=== PATIENT | female | born 1940 | race African-American/Black ===

== ENCOUNTER 2021-08-12 01:27 | Inpatient (IN) | payer OTHER ==
[2021-08-12] MEDS ORDERED: NA CHLORIDE 0.9% 1,000 ML ONE (01:58)
[2021-08-12] MEDS ORDERED: CEFTRIAXONE 1000 MG/VIAL ONE (01:58)
[2021-08-12] MEDS ORDERED: ACETAMINOPHEN 500 MG TAB ONE (01:58)
[2021-08-12 02:25] LABS: Urine Blood 2+ (Negative); Urine Glucose Negative (Negative); Urine Protein 2+ (Negative); Urine Specific Gravity 1.025 (1.005-1.030)
[2021-08-12 02:57] LABS: Absolute Lymphocytes (CBC) 0.6 K/uL (0.7-4.9); Lymphocytes % 5.9 % (15.3-44.8); MCV 75.1 fL (80-100); MPV 8.7 fL (7.6-11.3); RBC Red Blood Cell Count 4.12 M/uL (3.86-4.86)
[2021-08-12] MEDS ORDERED: ACETAMINOPHEN 650MG/RECT SUPP PR ONE (02:59)
[2021-08-12 03:01] LABS: Protime INR 1.28
[2021-08-12 03:13] LABS: Albumin 3.9 g/dL (3.4-5.0); Bilirubin Direct 0.6 mg/dL (0-0.2); Bilirubin Total 1.2 mg/dL (0.2-1.0); Magnesium 1.9 mg/dL (1.8-2.4); Potassium 4.1 mmol/L (3.5-5.1)
[2021-08-12 03:17] LABS: Troponin High Sensitivity 16.1 pg/mL (<58.9)
--- NOTE | 2021-08-12 03:40 | EDPHYS ---
Physician Documentation [facility] Name: Mary Jo Lemus Age: 80 yrs Sex: Female : 1940 Arrival Date: 08/12/2021 Time: 01:42 Bed 5 Private MD: ED Physician Tone Hernandez HPI: 08/12 02:32 This 80 yrs old Black Female presents to ER via EMS with complaints of Altered Mental qamar Status. 02:32 The patient presents with confusion, decreased mental status. Onset: The qamar symptoms/episode began/occurred today. Possible causes: sepsis. Associated signs and symptoms: The patient has no apparent associated signs or symptoms, Pertinent positives: confusion, dizziness, headache, lightheadedness. Current symptoms: In the emergency department the patient's symptoms are unchanged from the initial presentation. Patient's baseline: Neuro: alert and fully oriented. The patient has experienced similar episodes in the past, a few times. Historical: - Allergies: 01:44 No Known Allergies; lp1 - Home Meds: 01:44 enalapril maleate 20 mg Oral tab 1 tab 2 times per day [Active]; glipizide 5 mg Oral lp1 tab 1 tab once daily [Active]; pantoprazole 40 mg oral TbEC 1 tab 2 times per day [Active]; leflunomide 20 mg oral tab 1 tab once daily [Active]; metoprolol tartrate 25 mg Oral tab 1 tab once daily [Active]; - PMHx: 01:44 Hypertensive disorder; Diabetes mellitus; lp1 - PSHx: 01:44 hysterectomy; Cholecystectomy; knee surgery; lp1 - Immunization history:: Adult Immunizations up to date, Client reports receiving the 2nd dose of the Covid vaccine. - Social history:: Smoking status: Patient denies any tobacco usage or history of. ROS: 02:33 Eyes: Negative for injury, pain, redness, and discharge, ENT: Negative for injury, qamar pain, and discharge, Neck: Negative for injury, pain, and swelling, Cardiovascular: Negative for chest pain, palpitations, and edema, Respiratory: Negative for shortness of breath, cough, wheezing, and pleuritic chest pain, Back: Negative for injury and pain, MS/Extremity: Negative for injury and deformity, Skin: Negative for injury, rash, and discoloration, Psych: Negative for depression, anxiety, suicide ideation, homicidal ideation, and hallucinations, Allergy/Immunology: Negative for hives, rash, and allergies, Endocrine: Negative for neck swelling, polydipsia, polyuria, polyphagia, and marked weight changes. 02:33 Constitutional: Positive for fever. 02:33 Respiratory: Positive for cough. 02:33 : Positive for difficulty urinating. 02:33 Neuro: Positive for altered mental status, weakness. Exam: 02:33 Head/Face: Normocephalic, atraumatic. Eyes: Pupils equal round and reactive to light, qamar extra-ocular motions intact. Lids and lashes normal. Conjunctiva and sclera are non-icteric and not injected. Cornea within normal limits. Periorbital areas with no swelling, redness, or edema. ENT: Nares patent. No nasal discharge, no septal abnormalities noted. Tympanic membranes are normal and external auditory canals are clear. Oropharynx with no redness, swelling, or masses, exudates, or evidence of obstruction, uvula midline. Mucous membranes moist. Neck: Trachea midline, no thyromegaly or masses palpated, and no cervical lymphadenopathy. Supple, full range of motion without nuchal rigidity, or vertebral point tenderness. No Meningismus. Chest/axilla: Normal chest wall appearance and motion. Nontender with no deformity. No lesions are appreciated. Cardiovascular: Regular rate and rhythm with a normal S1 and S2. No gallops, murmurs, or rubs. Normal PMI, no JVD. No pulse deficits. Respiratory: Lungs have equal breath sounds bilaterally, clear to auscultation and percussion. No rales, rhonchi or wheezes noted. No increased work of breathing, no retractions or nasal flaring. Abdomen/GI: Soft, non-tender, with normal bowel sounds. No distension or tympany. No guarding or rebound. No evidence of tenderness throughout. Back: No spinal tenderness. No costovertebral tenderness. Full range of motion. Skin: Warm, dry with normal turgor. Normal color with no rashes, no lesions, and no evidence of cellulitis. MS/ Extremity: Pulses equal, no cyanosis. Neurovascular intact. Full, normal range of motion. Psych: Awake, alert, with orientation to person, place and time. Behavior, mood, and affect are within normal limits. 02:33 Constitutional: The patient appears febrile. 02:33 Cardiovascular: Rate: tachycardic, actual rate is 100 bpm, Rhythm: regular, Pulses: no pulse deficits are appreciated, Heart sounds: normal, normal S1and S2, no S3 or S4, no murmur, no rub, no gallop, murmur, not appreciated, rub, not appreciated, Edema: is not appreciated, JVD: is not appreciated. Vital Signs: 01:42 BP 166 / 84; Pulse 100; Resp 19; Temp 101.9(O); Pulse Ox 100% on R/A; Weight 54.43 kg lp1 (R); Height 5 ft. 4 in. (162.56 cm); Pain 0/10; 05:23 Temp 99.1(O); lg3 01:42 Body Mass Index 20.60 (54.43 kg, 162.56 cm) lp1 MDM: 01:45 Patient medically screened. qamar 02:36 Differential diagnosis: viral Infection, bacterial infection, URI, bronchitis, qamar pneumonia UTI, gastroenteritis. Differential Diagnosis altered mental status, sepsis. Differential Diagnosis: alcohol intoxication, hypoglycemia, TIA, UTI, volume depletion. Data reviewed: vital signs, nurses notes, lab test result(s), EKG, radiologic studies, plain films. Data interpreted: personnel monitor: rate is 100 beats/min, rhythm is regular, Pulse oximetry: on room air is 100 %. Test interpretation: by ED physician or midlevel provider: ECG, plain radiologic studies. Counseling: I had a detailed discussion with the patient and/or guardian regarding: the historical points, exam findings, and any diagnostic results supporting the discharge/admit diagnosis, lab results, radiology results, the need for further work-up and treatment in the hospital. 08/12 01:46 Order name: Basic Metabolic Panel; Complete Time: 03:20 qamar 08/12 01:46 Order name: CBC with Diff; Complete Time: 03:20 qamar 08/12 01:46 Order name: LFT's; Complete Time: 03:20 qamar 08/12 01:46 Order name: Magnesium; Complete Time: 03:20 qamar 08/12 01:46 Order name: NT PRO-BNP; Complete Time: 03:20 qamar 08/12 01:46 Order name: PT-INR; Complete Time: 03:20 qamar 08/12 01:46 Order name: Troponin HS; Complete Time: 03:20 qamar 08/12 01:46 Order name: XRAY Chest (1 view) [facility] 08/12 01:46 Order name: Lipase; Complete Time: 03:20 qamar 08/12 01:46 Order name: Urine Culture [facility] 08/12 01:46 Order name: Lactate; Complete Time: 03:20 qamar 08/12 01:47 Order name: SARS-COV-2 RT PCR (Document "Date of Onset" if Symptomatic); Complete Time: qamar 04:12 08/12 02:26 Order name: Urine Dipstick-Ancillary; Complete Time: 02:31 EDMS 08/12 02:30 Order name: CT Stone Protocol [facility] 08/12 01:46 Order name: EKG; Complete Time: 01:47 qamar 08/12 01:46 Order name: Cardiac monitoring; Complete Time: 01:49 qmaar 08/12 01:46 Order name: EKG - Nurse/Tech; Complete Time: 02:25 qamar 08/12 01:46 Order name: IV Saline Lock; Complete Time: 02:25 [facility] 08/12 01:46 Order name: Labs collected and sent; Complete Time: 02:25 [facility] 08/12 01:46 Order name: O2 Per Protocol; Complete Time: 01:49 [facility] 08/12 01:46 Order name: O2 Sat Monitoring; Complete Time: 01:49 qamar 08/12 01:46 Order name: Urine Dipstick-Ancillary (obtain specimen); Complete Time: 02:25 [facility] 08/12 02:22 Order name: Sheriff; Complete Time: 02:22 lg3 02 02:33 Order name: CT Head Brain wo Cont [facility] 08/12 02:37 Order name: Head Brain Wo Cont EDMS Administered Medications: 02:32 CANCELLED (Duplicate Order): Tylenol 1000 mg PO once qamar 02:45 Drug: NS 0.9% 1000 ml Route: IV; Rate: 1 bolus; Site: right antecubital; lg3 05:24 Follow up: IV Status: Infusion continued upon admission lg3 02:45 Drug: Rocephin (cefTRIAXone) 1 grams Route: IV; Rate: per protocol; Site: right lg3 antecubital; 02:45 Follow up: Response: No adverse reaction lg3 02:45 Follow up: Response: No adverse reaction lg3 05:23 Follow up: Response: No adverse reaction; IV Status: Completed infusion; IV Intake: [id number] 03:10 Drug: Tylenol Suppository 650 mg Route: ND; lg3 05:23 Follow up: Response: No adverse reaction lg3 Disposition Summary: 08/12/21 03:39 Hospitalization Ordered Hospitalization Status: Inpatient Admission [facility] Provider: Rikki Carreon cha Location: Telemetry/MedSur (Inpatient) qamar Condition: Fair qamar Problem: new qamar Symptoms: have improved qamar Bed/Room Type: Standard [facility] Room Assignment: 425(08/12/21 04:34) mw Diagnosis - Fever, unspecified qamar - Abdominal tenderness qamar - Altered mental status, unspecified qamar - Coronavirus infection, unspecified [facility] - SARS-associated coronavirus as the cause of diseases classified elsewhere qamar Forms: - Medication Reconciliation Form qamar - SBAR form [facility] Signatures: Dispatcher [employer] EDMey Maxwell RN RN Tone Max MD MD cha Pena, Laura, RN RN lp1 Trisha Ledesma RN RN lg3 Sadia You PA PA sb3 Corrections: (The following items were deleted from the chart) 02:32 01:46 Tylenol 1000 mg PO once ordered. [facility] 04:34 03:39 [facility]
--- NOTE | 2021-08-12 03:40 | ER ---
Nurse's Notes [facility] Name: Mary Jo Lemus Age: 80 yrs Sex: Female : 1940 Arrival Date: 08/12/2021 Time: 01:42 Bed 5 Private MD: Diagnosis: Fever, unspecified;Abdominal tenderness;Altered mental status, unspecified;Coronavirus infection, unspecified;SARS-associated coronavirus as the cause of diseases classified elsewhere Presentation: 08/12 01:42 Chief complaint: EMS states: Called by patient's daughter for complaint of altered lp1 mental status, reports patient did not seem like herself. Coronavirus screen: fever. Ebola Screen: No symptoms or risks identified at this time. Initial Sepsis Screen: Does the patient meet any 2 criteria? Temp <36.0*C (96.8*F)) or > 38.3*C (100.9*F). Does the patient have a suspected source of infection? No. Patient's initial sepsis screen is negative. Risk Assessment: Do you want to hurt yourself or someone else? Patient reports no desire to harm self or others. Onset of symptoms was August 12, 2021. 01:42 Method Of Arrival: EMS: [facility] lp1 01:42 Acuity: EZIO 3 lp1 01:47 Care prior to arrival: IV initiated. 20 GA, in the left antecubital area, Glucose lp1 check: 96. Historical: - Allergies: 01:44 No Known Allergies; lp1 - Home Meds: 01:44 enalapril maleate 20 mg Oral tab 1 tab 2 times per day [Active]; glipizide 5 mg Oral lp1 tab 1 tab once daily [Active]; pantoprazole 40 mg oral TbEC 1 tab 2 times per day [Active]; leflunomide 20 mg oral tab 1 tab once daily [Active]; metoprolol tartrate 25 mg Oral tab 1 tab once daily [Active]; - PMHx: 01:44 Hypertensive disorder; Diabetes mellitus; lp1 - PSHx: 01:44 hysterectomy; Cholecystectomy; knee surgery; lp1 - Immunization history:: Adult Immunizations up to date, Client reports receiving the 2nd dose of the Covid vaccine. - Social history:: Smoking status: Patient denies any tobacco usage or history of. Screenin:46 Abuse screen: Denies threats or abuse. Denies injuries from another. Nutritional lg3 screening: No deficits noted. Tuberculosis screening: No symptoms or risk factors identified. Fall Risk No fall in past 12 months (0 pts). IV access (20 points). Ambulatory Aid- None/Bed Rest/Nurse Assist (0 pts). Gait- Weak (10 pts.). Mental Status- Overestimates/Forgets Limitations (15 pts.). Total Hurtado Fall Scale indicates High Risk Score (45 or more points). Fall prevention measures have been instituted. Side Rails Up X 2 Frequent Obs/Assessments Occuring Family Present and informed to notify staff if the need to leave the bedside As available patient and family educated on Fall Prevention Program and Strategies. Assessment: 02:46 General: Appears in no apparent distress. comfortable, Behavior is calm, cooperative, lg3 flat, quiet. Pain: Denies pain. Neuro: Level of Consciousness is awake, alert, confused, Oriented to person, place. Cardiovascular: No deficits noted. Capillary refill < 3 seconds Clubbing of nail beds is absent JVD is absent Patient's skin is warm and dry. Respiratory: No deficits noted. Airway is patent Trachea midline Respiratory effort is even, unlabored, Respiratory pattern is regular, symmetrical, Breath sounds are clear bilaterally. GI: No deficits noted. Abdomen is flat, distended, Bowel sounds present X 4 quads. Abd is soft and non tender X 4 quads. : No deficits noted. No signs and/or symptoms were reported regarding the genitourinary system. EENT: No deficits noted. No signs and/or symptoms were reported regarding the EENT system. Derm: Skin is intact, is thin, Skin is dry, Skin temperature is warm. Musculoskeletal: Circulation, motion, and sensation intact. Range of motion: intact in all extremities, Parent/caregiver report the patient having generalized weakness. 04:40 Reassessment: Patient appears in no apparent distress at this time. No changes from lg3 previously documented assessment. Patient and/or family updated on plan of care and expected duration. Pain level reassessed. pt quietly resting with family at bedside. Vital Signs: 01:42 BP 166 / 84; Pulse 100; Resp 19; Temp 101.9(O); Pulse Ox 100% on R/A; Weight 54.43 kg lp1 (R); Height 5 ft. 4 in. (162.56 cm); Pain 0/10; 05:23 Temp 99.1(O); lg3 01:42 Body Mass Index 20.60 (54.43 kg, 162.56 cm) lp1 ED Course: 01:42 Patient arrived in ED. lp1 01:43 Trisha Ledesma, RN is Primary Nurse. lg3 01:44 Triage completed. lp1 01:44 Arm band placed on right wrist. lp1 01:45 Tone Hernandez MD is Attending Physician. qamar 01:47 Patient has correct armband on for positive identification. Bed in low position. Side lp1 rails up X2. Client placed on continuous cardiac and pulse oximetry monitoring. NIBP monitoring applied. 02:22 Sheriff cath inserted, using sterile technique, 18 Fr., by nm, balloon inflated, to lg3 gravity drainage, urine specimen collected. 02:25 SARS-COV-2 RT PCR (Document "Date of Onset" if Symptomatic) Sent. mh5 02:25 Lactate Sent. mh5 02:25 Lipase Sent. mh5 02:25 Basic Metabolic Panel Sent. mh5 02:25 CBC with Diff Sent. mh5 02:25 LFT's Sent. mh5 02:25 Magnesium Sent. mh5 02:25 NT PRO-BNP Sent. mh5 02:25 PT-INR Sent. mh5 02:25 Troponin HS Sent. mh5 02:26 Warm blanket given. security monitor on. Pulse ox on. NIBP on. mh5 02:26 Initial lab(s) drawn, by ED staff, sent to lab. Urine collected: Sheriff catheter mh5 specimen, cloudy. Maintain EMS IV. Dressing intact. Good blood return noted. Site clean \\T\\ dry. Sheriff cath inserted, using sterile technique, 16 Fr.. 02:30 XRAY Chest (1 view) In Process Unspecified. EDMS 02:45 Urine Culture Sent. lg3 02:46 Inserted saline lock: 22 gauge in right antecubital area, using aseptic technique. lg3 Blood collected. 03:21 Inserted saline lock: 22 gauge in right antecubital area, using aseptic technique. mh5 Blood collected. 03:36 Rikki Carreon is Hospitalizing Provider. qamar 04:06 CT Stone Protocol In Process Unspecified. EDMS 04:06 Head Brain Wo Cont In Process Unspecified. EDMS 05:22 No provider procedures requiring assistance completed. Patient admitted, IV remains in lg3 place. intact, No redness/swelling at site. Administered Medications: 02:32 CANCELLED (Duplicate Order): Tylenol 1000 mg PO once qamar 02:45 Drug: NS 0.9% 1000 ml Route: IV; Rate: 1 bolus; Site: right antecubital; lg3 05:24 Follow up: IV Status: Infusion continued upon admission lg3 02:45 Drug: Rocephin (cefTRIAXone) 1 grams Route: IV; Rate: per protocol; Site: right lg3 antecubital; 02:45 Follow up: Response: No adverse reaction lg3 02:45 Follow up: Response: No adverse reaction lg3 05:23 Follow up: Response: No adverse reaction; IV Status: Completed infusion; IV Intake: 47iffs2 03:10 Drug: Tylenol Suppository 650 mg Route: DC; lg3 05:23 Follow up: Response: No adverse reaction lg3 Medication: 01:48 VIS not applicable for this client. lp1 Intake: 05:23 IV: 10ml; Total: 10ml. lg3 Outcome: 03:39 Decision to Hospitalize by Provider. qamar 05:22 Admitted to Tele accompanied by tech, via stretcher, room 425, Report called to [facility] 05:22 Condition: stable 05:22 Instructed on the need for admit. 05:23 Patient left the ED. lg3 Signatures: Dispatcher [employer] EDTone Perez MD MD cha Pena, Laura, RN RN corey1 [facility]erica Mcarth[facility] Trisha Ledesma RN RN lg3
--- NOTE | 2021-08-12 04:40 | P.HP ---
Certification for Inpatient Patient admitted to: Inpatient With expected LOS: <2 Midnights Patient will require the following post-hospital care: None Practitioner: I am a practitioner with admitting privileges, knowledge of patient current condition, hospital course, and medical plan of care. Services: Services provided to patient in accordance with Admission requirements found in Title 42 Section 412.3 of the Code of Federal Regulations <Sadia You - Last Filed: 08/12/21 04:51> Patient History Date of Service: 08/12/21 Reason for admission: AMS, Fever, COVID History of Present Illness: Patient is a 80-year-old female with past medical history of NIDDM and hypertension who presented to the ED via EMS with daughter with concerns of altered mental status. Per daughter, patient was not acting like herself and not answering questions appropriately. Patient's recently tested positive for COVID and they have been isolated from each other. Patient received her fourth COVID vaccination 3 days ago. Initial vital signs significant for tachycardia, hypertension, and fever of 101.9. She was given Rocephin, 1 L fluid, and Tylenol suppository. Patient is alert and orientedx2 but confused. Chest x-ray negative. Head CT pending. Labs significant for hemoglobin 10.3, hematocrit 31, neutrophils 88, BNP 883. She is saturating appropriately on room air. ED provider wishes to admit patient for further evaluation and treatment. Home medications list reviewed: Yes - Past Medical/Surgical History Diabetic: Yes -: Type 2 Diabetes, Non-Insulin Dependent -: Hypertension -: Hysterectomy -: Cholecystectomy Psychosocial/ Personal History: Patient is . - Social History Smoking Status: Never smoker Alcohol use: No CD- Drugs: No Caffeine use: Yes Place of Residence: Home <Sadia You - Last Filed: 08/12/21 04:51> Date of Service: 08/12/21 <Faith Giordano - Last Filed: 08/13/21 15:20> Allergies bee venom protein (honey bee) Allergy (Verified 08/12/21 07:07) Anaphylaxis pentazocine [From Talwin] Allergy (Verified 08/12/21 07:07) Itching/Hives/Rash propoxyphene Allergy (Verified 08/12/21 22:49) Itching/Hives/Rash tetracycline Allergy (Verified 07/02/22 07:07) Nausea/Vomiting venom-wasp Allergy (Verified 08/12/21 07:07) Anaphylaxis Home Medications: Dextran/Hypromellose/Glycerin [Genteal Tears 0.1%-0.2%-0.3%] 2 drops OP BID 08/12/21 Duloxetine HCl 30 mg PO DAILY 08/12/21 Enalapril Maleate [Vasotec] 20 mg PO BID 08/12/21 Glipizide [Glipizide Xl] 5 mg PO DAILY 08/12/21 Hydrocodone Bit/Acetaminophen [Hydrocodon-Acetaminophn 10-325] 1 each PO Q4HP PRN 08/12/21 Leflunomide 20 mg PO DAILY 08/12/21 Metoprolol Succinate 25 mg PO DAILY 08/12/21 Pantoprazole [Protonix Tab] 40 mg PO BID 08/12/21 hydroCHLOROthiazide [Hydrodiuril] 25 mg PO DAILY 08/12/21 Review of Systems General: Fever, Weakness, Malaise <Sadia You - Last Filed: 08/12/21 04:51> Physical Examination - Physical Exam General: Alert, In no apparent distress, Oriented x2, Confused HEENT: Atraumatic, PERRLA, EOMI, Sclerae nonicteric Neck: Supple, 2+ carotid pulse no bruit, No LAD, Without JVD or thyroid abnormality Respiratory: Clear to auscultation bilaterally, Normal air movement Cardiovascular: Regular rate/rhythm, Normal S1 S2 Gastrointestinal: Normal bowel sounds, No tenderness Musculoskeletal: No tenderness Integumentary: No rashes Neurological: Normal speech, Sensation intact, Normal affect - Studies Laboratory Data (last 24 hrs) 08/12/21 02:39: PT 14.2 H, INR 1.28 08/12/21 02:39: WBC 9.9, Hgb 10.3 L, Hct 31.0 L, Plt Count 179 08/12/21 02:39: Sodium 136, Potassium 4.1, BUN 14, Creatinine 1.22, Glucose 104, Magnesium 1.9, Total Bilirubin 1.2 H, AST 23, ALT 13, Alkaline Phosphatase 74, Lipase 24 L <Sadia You - Last Filed: 08/12/21 04:51> Assessment and Plan - Problems (Diagnosis) (1) AMS (altered mental status) Current Visit: Yes Status: Acute Qualifiers: Altered mental status type: unspecified Qualified Code(s): R41.82 - Altered mental status, unspecified (2) Fever Current Visit: Yes Status: Acute Qualifiers: Fever type: unspecified Qualified Code(s): R50.9 - Fever, unspecified (3) COVID-19 Current Visit: Yes Status: Acute (4) Type 2 diabetes mellitus Current Visit: Yes Status: Chronic Qualifiers: Diabetes mellitus bed bug exterminator insulin use: without mcfp use Diabetes mellitus complication status: with kidney complications Diabetes mellitus complication detail: with chronic kidney disease Chronic kidney disease stage 3 subtype: stage 3a (GFR 45-59) (5) Hypertension Current Visit: Yes Status: Chronic Qualifiers: Hypertension type: primary hypertension Qualified Code(s): I10 - Essential (primary) hypertension - Plan -Patient has been altered and failed swallow study. NPO. Speech eval ordered. Continue to monitor mental status -Sheriff catheter in place. Monitor intake and output -Tylenol suppository as needed for fever. Will transition to PO once patient passes swallow study. -Oral vitamin C and zinc when patient passes swallow study. -IV decadron -Tessalon pearles if needed -Cont gentle IV hydration. No history of CHF. CXR negative. Patient's daughter reports she has had decreased fluid intake. -Monitor and replete electrolytes per protocol -Lovenox for VTE ppx -Full code Discharge Plan: Home Plan to discharge in: 48 Hours - Advance Directives Does patient have a Living Will: No Does patient have a Durable POA for Healthcare: No - Code Status/Comfort Care Code Status Assessed: Yes (Full) Critical Care: No Time Spent Managing Pts Care (In Minutes): 50 <Sadia You - Last Filed: 08/12/21 04:51> - Problems (Diagnosis) (1) AMS (altered mental status) Current Visit: Yes Status: Acute Qualifiers: Altered mental status type: unspecified Qualified Code(s): R41.82 - Altered mental status, unspecified (2) COVID-19 Current Visit: Yes Status: Acute (3) Fever Current Visit: Yes Status: Acute Qualifiers: Fever type: unspecified Qualified Code(s): R50.9 - Fever, unspecified (4) Hypertension Current Visit: Yes Status: Chronic Qualifiers: Hypertension type: primary hypertension Qualified Code(s): I10 - Essential (primary) hypertension (5) Type 2 diabetes mellitus Current Visit: Yes Status: Chronic Qualifiers: Diabetes mellitus bed bug exterminator insulin use: without bed bug exterminator use Diabetes mellitus complication status: with kidney complications Diabetes mellitus complication detail: with chronic kidney disease Chronic kidney disease stage 3 subtype: stage 3a (GFR 45-59) <Faith Giordano - Last Filed: 08/13/21 15:20> Date of Service: 08/12/21 Subjective: HPI as mentioned above Physical Examination: Vitals: Afebrile vital signs are stable Physical exam: Cardiovascular: Within normal limits. Lungs: Within normal limits Abdomen: Within normal limits Neuro: Confused but interacting and answering questions Assessment: 1. Altered mental status Plan: 1. Continue with current plan of care as mentioned above <Faith Giordano - Last Filed: 08/13/21 15:20>
[2021-08-12] MEDS ORDERED: ALBUTEROL 2.5 MG/3 ML NEB SOL NEB PRN (05:04)
[2021-08-12] MEDS ORDERED: BENZONATATE 100 MG CAP PO PRN (05:04)
[2021-08-12] MEDS: NA CHLORIDE 0.9% 1,000 ML IV SCH ×2 (06:20→18:13)
[2021-08-12 06:35] VITALS: BMI 20.5
[2021-08-12 07:28] LABS: Urine Appearance Clear (Clear); Urine Bilirubin Negative (Negative); Urine Blood 1+ (Negative); Urine Color Yellow (Yellow); Urine Glucose Negative (Negative); Urine Protein 1+ (Negative)
[2021-08-12] MEDS: INSULIN -REGULAR HUMAN 50 UNIT/0.5 ML ML SQ SCH ×4 (07:30→20:44)
[2021-08-12 07:42] LABS: Urine Bacteria NONE SEEN /HPF (<20)
[2021-08-12] MEDS ORDERED: ACETAMINOPHEN 650MG/RECT SUPP PR PRN (09:00)
[2021-08-12] MEDS: ZINC SULFATE 220 MG CAP PO SCH (09:40)
[2021-08-12] MEDS: ENOXAPARIN 40 MG/0.4 ML SQ SCH (09:40)
[2021-08-12] MEDS: dexAMETHasone 10 MG/ML VIAL IV SCH ×2 (09:40→18:11)
[2021-08-12] MEDS: ASCORBIC ACID 500 MG TABLET PO SCH (09:40)
[2021-08-12] MEDS: ONDANSETRON 4 MG/2 ML VIAL IV PRN (10:24)
[2021-08-12] MEDS: HYDRALAZINE HCL 20 MG/ML VIAL IV PRN (15:37)
--- NOTE | 2021-08-12 19:50 | RAD REPORT ---
EXAM DESCRIPTION: CT - Head Brain Wo Cont - 08/12/2021 7:16 am CLINICAL HISTORY: Mental status change, unknown cause COMPARISON: None. TECHNIQUE: CT HEAD WITHOUT IV CONTRAST on 08/12/2021 2:33 AM CDT This exam was performed according to our departmental dose-optimization program, which includes autom ated exposure control, adjustment of the mA and/or kV according to patient size and/or use of iterati ve reconstruction technique. FINDINGS: There is no acute hemorrhage, mass effect or midline shift. Dodge-white differentiation is preserved. There is no hydrocephalus. There is no significant volume loss for age. There are moderate hypodensities in the periventricular and subcortical white matter. There is a septum cavum pellucidu m. The calvarium is intact. Orbits and globes are unremarkable. The paranasal sinuses are clear. Mastoid air cells are clear. IMPRESSION: No acute intracranial findings. Electronically signed by: Mohsen Coon MD 08/12/2021 5:35 AM CDT Due to temporary technical issues with the PACS/Fluency reporting system, reports are being signed by the in house radiologists without review as a courtesy to insure prompt reporting. The interpreting radiologist is fully responsible for the content of the report.
--- NOTE | 2021-08-12 19:54 | RAD REPORT ---
EXAM DESCRIPTION: CT - Stone Protocol - 08/12/2021 7:16 am CLINICAL HISTORY: Flank pain, kidney stone suspected COMPARISON: None. TECHNIQUE: CT ABDOMEN PELVIS WITHOUT IV CONTRAST on 08/12/2021 2:30 AM CDT This exam was performed according to our departmental dose-optimization program, which includes autom ated exposure control, adjustment of the mA and/or kV according to patient size and/or use of iterati ve reconstruction technique. FINDINGS: Lower lungs are clear. Abdomen: The liver is normal in appearance. There is no biliary dilatation. Cholecystectomy was perfo rmed. The pancreas and spleen are normal in appearance. The adrenal glands and kidneys are unremarkab le. Abdominal aorta is normal in course and caliber without aneurysm. There is no free air. There is no r etroperitoneal adenopathy. Pelvis: There is no bowel obstruction. Urinary bladder is partially decompressed with a Sheriff cathete r within. There is small amount of air in the urinary bladder. There is no free fluid. Hysterectomy w as performed. Appendix is not clearly seen. Skeleton: There is an old mild upper endplate compression deformity of L3. IMPRESSION: No definite acute findings. Electronically signed by: Mohsen Coon MD 08/12/2021 4:16 AM CDT Due to temporary technical issues with the PACS/Fluency reporting system, reports are being signed by the in house radiologists without review as a courtesy to insure prompt reporting. The interpreting radiologist is fully responsible for the content of the report.
[2021-08-12 20:38] VITALS: O2SAT 97
--- NOTE | 2021-08-12 21:12 | RAD REPORT ---
EXAM DESCRIPTION: RAD - Chest Single View - 08/12/2021 2:28 am CLINICAL HISTORY: COUGH COMPARISON: None. TECHNIQUE: XR CHEST 1 VIEW 08/12/2021 1:46 AM CDT FINDINGS: Cardiac silhouette is normal in size. Lungs are clear without consolidation, atelectasis, mass or edema. There is no pleural effusion. There is no pneumothorax. There are no acute osseous fin dings. IMPRESSION: Clear lungs. Electronically signed by: Mohsen Coon MD 08/12/2021 4:08 AM CDT Due to temporary technical issues with the PACS/Fluency reporting system, reports are being signed by the in house radiologists without review as a courtesy to insure prompt reporting. The interpreting radiologist is fully responsible for the content of the report.
[2021-08-12] MEDS ORDERED: CEFTRIAXONE 1,000 MG in NA CHLORIDE 0.9% 50 ML IVPB ONE (22:19)
[2021-08-12] MEDS ORDERED: METOPROLOL TARTRATE 5 MG/5 ML INJ IV STA (22:20)
[2021-08-12] MEDS ORDERED: METOPROLOL TARTRATE 5 MG/5 ML INJ IV PRN (22:20)
[2021-08-13] MEDS: dexAMETHasone 10 MG/ML VIAL IV SCH ×2 (00:36→09:55)
[2021-08-13 04:51] LABS: Absolute Lymphocytes (CBC) 0.8 K/uL (0.7-4.9); Lymphocytes % 14.5 % (15.3-44.8); MCV 75.2 fL (80-100); RBC Red Blood Cell Count 3.98 M/uL (3.86-4.86)
[2021-08-13 05:11] LABS: Magnesium 1.8 mg/dL (1.8-2.4); Phosphorus 3.1 mg/dL (2.5-4.9); Potassium 3.9 mmol/L (3.5-5.1)
[2021-08-13] MEDS: METOPROLOL TAR 25 MG TAB PO SCH ×2 (05:16→17:38)
[2021-08-13] MEDS ORDERED: MAGNESIUM SULFATE 1 gm IVPB 1 GM/100 ML BAG IV ONE (05:38)
[2021-08-13] MEDS: NA CHLORIDE 0.9% 1,000 ML IV SCH (06:06)
[2021-08-13] MEDS: INSULIN -REGULAR HUMAN 50 UNIT/0.5 ML ML SQ SCH ×3 (07:30→16:31)
[2021-08-13] MEDS ORDERED: CEFTRIAXONE 1,000 MG in NA CHLORIDE 0.9% 50 ML IVPB SCH (09:00)
[2021-08-13] MEDS ORDERED: AMLODIPINE 10 MG TAB PO SCH (09:00)
[2021-08-13] MEDS ORDERED: POTASSIUM 25 MEQ EFFERV TAB PO ONE (09:00)
[2021-08-13] MEDS: ZINC SULFATE 220 MG CAP PO SCH (09:53)
[2021-08-13] MEDS: ASCORBIC ACID 500 MG TABLET PO SCH (09:53)
[2021-08-13] MEDS: ENOXAPARIN 40 MG/0.4 ML SQ SCH (09:55)
[2021-08-13] MEDS: HYDRALAZINE HCL 20 MG/ML VIAL IV PRN (11:41)
[2021-08-13] MEDS: ONDANSETRON 4 MG/2 ML VIAL IV PRN (12:46)
[2021-08-13] MEDS ORDERED: ASPIRIN EC 81 MG TAB PO SCH (15:18)
--- NOTE | 2021-08-13 15:20 | P.PN ---
Subjective Date of Service: 08/13/21 Subjective: No new changes, No C/O voiced, Improving Spoke with patient's daughter and patient is back to baseline. She is a 80-year-old female who came to the hospital with altered mental status. She was confused yesterday and not really able to get out of bed. Today she has back to her baseline as far as her confusion. She is able to interact more appropriately. On ambulation she is still weak but she is starting to get around. She feels much better than she has been. MRI is pending to rule out CVA. If this is negative she should be able to go home. Review of Systems 10-point ROS is otherwise unremarkable Physical Examination - Vital Signs Temperature: 97.4 F Blood Pressure: 172/92 Pulse: 88 Respirations: 18 Pulse Ox (%): 98 - Physical Exam General: Alert, In no apparent distress, Oriented x3 HEENT: Atraumatic, PERRLA, EOMI Neck: Supple, JVD not distended Respiratory: Clear to auscultation bilaterally, Normal air movement Cardiovascular: Regular rate/rhythm, Normal S1 S2 Gastrointestinal: Normal bowel sounds, No tenderness Musculoskeletal: No tenderness Integumentary: No rashes Neurological: Normal speech, Normal tone, Normal affect Lymphatics: No axilla or inguinal lymphadenopathy - Studies Medications List Reviewed: Yes Assessment & Plan - Problems (Diagnosis) (1) AMS (altered mental status) Current Visit: Yes Status: Acute Qualifiers: Altered mental status type: unspecified Qualified Code(s): R41.82 - Altered mental status, unspecified (2) COVID-19 Current Visit: Yes Status: Acute (3) Fever Current Visit: Yes Status: Acute Qualifiers: Fever type: unspecified Qualified Code(s): R50.9 - Fever, unspecified (4) Hypertension Current Visit: Yes Status: Chronic Qualifiers: Hypertension type: primary hypertension Qualified Code(s): I10 - Essential (primary) hypertension (5) Type 2 diabetes mellitus Current Visit: Yes Status: Chronic Qualifiers: Diabetes mellitus terminal superintendent insulin use: without long-term use Diabetes mellitus complication status: with kidney complications Diabetes mellitus complication detail: with chronic kidney disease Chronic kidney disease stage 3 subtype: stage 3a (GFR 45-59) - Plan 1. MRI of the brain 2. Antiplatelet and statin therapy 3. Continue with antibiotic therapy 4. Arrange for outpatient home health 5. DVT prophylaxis 6. Neurochecks every 4 hours 7. GI and DVT prophylaxis Discharge Plan: Home Plan to discharge in: 24 Hours - Advance Directives Does patient have a Living Will: No Does patient have a Durable POA for Healthcare: No - Code Status/Comfort Care Code Status Assessed: Yes Code Status: Full Code Critical Care: No Time Spent Managing PTS Care (In Minutes): 35
--- NOTE | 2021-08-13 16:00 | RAD REPORT ---
EXAM DESCRIPTION: MRI - Brain Wo Cont - 08/13/2021 3:48 pm CLINICAL HISTORY: AMS COMPARISON: Head Brain Wo Cont dated 08/12/2021 TECHNIQUE: Sagittal T1-weighted images were obtained along with axial PD, heavily T2-weighted and T2 -FLAIR images. Axial DWI and ADC mapping sequences were also obtained along with coronal heavily T2-w eighted images. FINDINGS: No intracranial hemorrhage, mass or acute infarction. There is no edema or shift of midlin e structures. No extra-axial fluid collections. Dodge-matter/white matter junction is preserved. Signa l voids are seen as a normal finding in the major intracranial vessels. Mild to moderate for age atrophy changes are present. Ventricles are prominent and may be slightly ou t of proportion to the amount of volume loss. Correlation is needed with any clinical exam findings t hat might indicate normal pressure hydrocephalus. The patient has a normal variant cavum septum pellu cidum. Extensive cerebral white matter T2 signal abnormality is present. This extends minimally into the basal ganglia. There is minimal brainstem signal abnormality in the central mitul. No sella or supra sella abnormality. No tonsillar ectopia. No globe or orbital content abnormality. Mastoid air cells and paranasal sinuses are clear. IMPRESSION: No acute infarction. No hemorrhage, mass or acute intracranial finding identified. Patient has advanced chronic ischemic change throughout the cerebral white matter with more mild basa l ganglia and brainstem chronic ischemic change. Atrophy changes are present with ventricles appearing slightly out of proportion to the amount of vol ume loss. Correlation can be made with any clinical finding or history of normal pressure hydrocephal us.
[2021-08-13 16:25] VITALS: BP 162/87; TEMP 97.7
--- NOTE | 2021-08-13 18:57 | P.DS ---
Discharge Date: 08/13/21 Disposition: ROUTINE DISCHARGE Discharge Condition: GOOD Reason for Admission: AMS, Fever, COVID - Problems (1) AMS (altered mental status) Current Visit: Yes Status: Acute Qualifiers: Altered mental status type: unspecified Qualified Code(s): R41.82 - Altered mental status, unspecified (2) COVID-19 Current Visit: Yes Status: Acute (3) Fever Current Visit: Yes Status: Acute Qualifiers: Fever type: unspecified Qualified Code(s): R50.9 - Fever, unspecified (4) Hypertension Current Visit: Yes Status: Chronic Qualifiers: Hypertension type: primary hypertension Qualified Code(s): I10 - Essential (primary) hypertension (5) Type 2 diabetes mellitus Current Visit: Yes Status: Chronic Qualifiers: Diabetes mellitus termite exterminator helper insulin use: without fpc use Diabetes mellitus complication status: with kidney complications Diabetes mellitus complication detail: with chronic kidney disease Chronic kidney disease stage 3 subtype: stage 3a (GFR 45-59) Brief History of Present Illness: Patient is a 80-year-old female with past medical history of NIDDM and hypertension who presented to the ED via EMS with daughter with concerns of altered mental status. Per daughter, patient was not acting like herself and not answering questions appropriately. Patient's recently tested positive for COVID and they have been isolated from each other. Patient received her fourth COVID vaccination 3 days ago. Initial vital signs significant for tachycardia, hypertension, and fever of 101.9. She was given Rocephin, 1 L fluid, and Tylenol suppository. Patient is alert and orientedx2 but confused. Chest x-ray negative. Head CT pending. Labs significant for hemoglobin 10.3, hematocrit 31, neutrophils 88, BNP 883. She is saturating appropriately on room air. ED provider wishes to admit patient for further evaluation and treatment. Hospital Course: Patient is clinically doing well, and family has decided to go home and follow- up as an outpt with their PCP and their Neurologist. Vital Signs/Physical Exam: Temp Pulse Resp BP Pulse Ox 97.7 F 106 H 18 162/87 H 90 L 08/13/21 16:00 08/13/21 17:38 08/13/21 16:00 08/13/21 17:38 08/13/21 16:00 General: Alert, In no apparent distress, Oriented x3 Laboratory Data at Discharge: WBC 5.8 K/uL (4.3-10.9) D 08/13/21 04:25 Hgb 9.9 g/dL (12.0-15.0) L 08/13/21 04:25 Hct 30.0 % (36.0-45.0) L 08/13/21 04:25 Plt Count 161 K/uL (152-406) 08/13/21 04:25 PT 14.2 SECONDS (9.5-12.5) H 08/12/21 02:39 INR 1.28 08/12/21 02:39 Sodium 137 mmol/L (136-145) 08/13/21 04:25 Potassium 3.9 mmol/L (3.5-5.1) 08/13/21 04:25 BUN 18 mg/dL (7-18) 08/13/21 04:25 Creatinine 0.95 mg/dL (0.55-1.3) 08/13/21 04:25 Glucose 123 mg/dL (74-106) H 08/13/21 04:25 Phosphorus 3.1 mg/dL (2.5-4.9) 08/13/21 04:25 Magnesium 1.8 mg/dL (1.8-2.4) 08/13/21 04:25 Total Bilirubin 1.2 mg/dL (0.2-1.0) H 08/12/21 02:39 AST 23 U/L (15-37) 08/12/21 02:39 ALT 13 U/L (12-78) 08/12/21 02:39 Alkaline Phosphatase 74 U/L (45-117) 08/12/21 02:39 Lipase 24 U/L (73-393) L 08/12/21 02:39 Home Medications: Dextran/Hypromellose/Glycerin [Genteal Tears 0.1%-0.2%-0.3%] 2 drops OP BID 08/12/21 Duloxetine HCl 30 mg PO DAILY 08/12/21 Enalapril Maleate [Vasotec] 20 mg PO BID 08/12/21 Glipizide [Glipizide Xl] 5 mg PO DAILY 08/12/21 Hydrocodone Bit/Acetaminophen [Hydrocodon-Acetaminophn 10-325] 1 each PO Q4HP PRN 08/12/21 Leflunomide 20 mg PO DAILY 08/12/21 Metoprolol Succinate 25 mg PO DAILY 08/12/21 Pantoprazole [Protonix Tab*] 40 mg PO BID 08/12/21 hydroCHLOROthiazide [Hydrodiuril*] 25 mg PO DAILY 08/12/21 Amlodipine [Norvasc*] 10 mg PO DAILY #30 tab 08/13/21 Aspirin [Aspirin EC 81 MG] 81 mg PO DAILY #30 tablet. 08/13/21 Atorvastatin Calcium [Lipitor] 40 mg PO BEDTIME #30 tab 08/13/21 Benzonatate [Tessalon Perle*] 100 mg PO TID PRN #30 cap 08/13/21 Cefdinir [Omnicef] 300 mg PO BID #10 capsule 08/13/21 Zinc Sulfate [Zinc Sulfate*] 220 mg PO DAILY #30 cap 08/13/21 predniSONE [Deltasone] 20 mg PO DAILY #5 tab 08/13/21 New Medications: Aspirin [Aspirin EC 81 MG] 81 mg PO DAILY #30 tablet. Atorvastatin Calcium [Lipitor] 40 mg PO BEDTIME #30 tab Amlodipine [Norvasc*] 10 mg PO DAILY #30 tab Cefdinir [Omnicef] 300 mg PO BID #10 capsule predniSONE [Deltasone] 20 mg PO DAILY #5 tab Benzonatate [Tessalon Perle*] 100 mg PO TID PRN #30 cap PRN Reason: Cough Zinc Sulfate [Zinc Sulfate*] 220 mg PO DAILY #30 cap Physician Discharge Instructions: OK TO DC IV AND DC HOME FOLLOW-UP WITH PRIMARY CARE PROVIDER IN 1-2 WEEKS FOLLOW-UP WITH NEUROLOGY IN 1-2 WEEKS RETURN TO THE ER IF SYMPTOMS WORSENS CALL DR. HERNANDEZ AT [phone] IF ANY QUESTIONS REGARDING HOSPITAL STAY. PLEASE CALL THE FLOOR AT [phone] IF ANY MEDICATION OR NURSING QUESTIONS Diet: AHA Activity: Fall precautions Followup: [facility] [Primary Care Provider] - Time spent managing pt's care (in minutes): 35
[2021-08-13] MEDS ORDERED: ATORVASTATIN 40 MG TAB PO SCH (21:00)
--- NOTE | 2021-08-15 08:04 | EKG ---
Test Date: 2021-08-12 Test Time: 02:50:22 Freight Brake Operator: MAGALI MEASUREMENT RESULTS: Intervals: Rate: 99 OR: 172 QRSD: 72 QT: 350 QTc: 449 [place]: P: 67 OR: 172 QRS: -14 T: 252 INTERPRETIVE STATEMENTS: Normal sinus rhythm Septal infarct, age undetermined ST & T wave abnormality, consider inferior ischemia Abnormal ECG Compared to ECG 04/20/2011 08:03:16 ST (T wave) deviation now present Possible ischemia now present Left ventricular hypertrophy no longer present Myocardial infarct finding still present Electronically Signed On 08-15-21 07:56:21 CDT by Efrain Hendricks
--- OUTSIDE RECORDS SUMMARY | 2021-08-30 06:38 | XMS REPORT | Continuity of Care Document ---
:1940 Author Organization [facility] t Address [address] [place] [address] Care Team Providers Name Role Phone Oly Westfall MD Primary Care Physician Oly Westfall MD Attending Clinician OLY WESTFALL Attending Clinician Unavailable Payers Payer Name Policy Type Policy Number Effective Date Expiration Date S ource Problems Condition Condition Condition Status Onset Resolution Last Treating Co mments Source Name Details Category Date Date Treatment Clinician Date Altered Altered Disease Active Univers mental mental 5-10 ity of status status 00:00: [place] 00 [facility] 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 4-12 ity of 00:00: [address] 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 00 [facility] Branch Generalize Generalize Disease Active U nivers d d 03-13 [place]y of osteoarthr [place]oarthr [place] 00 [facility] Branch Status Status Disease Active Univers post post 03-13 [place] of bilateral bilateral [place] knee 00 Medical replacemen replacemen Br anch ts ts Long-term Long-term Disease Active Uni vers use of use of 6-30 ity of immunosupp immunosupp 00:00: [place] ressant ressant 00 Medical medication medication Br anch Vitamin D Vitamin D Disease Active Uni vers deficiency deficiency 4-29 it y of 00:00: [place] [facility] Pseudophak Pseudophak Disease Active U nivers ia of both ia of both 2-21 it y of eyes eyes 00:00: [place] 00 Medical Branch Closed Closed Disease Active 2012-02 Overview: Univer s fracture fracture 0-10 Formattin ity of of lumbar of lumbar 00:00: [place] of this [place] vertebra vertebra 00 note Medica l might be Branch different from the original. 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[employer] Osteoporos Osteoporos Disease Active Overview : Univers is is 7-25 Formattin ity of 00:00: g of this [place] 00 note Medical might be Branch different from the original. 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 current current ICD10 use of use of Diagnosis insulin insulin Term Combination [employer] GERD GERD Disease Active Univers (gastroeso (gastroeso it y of phageal phageal [place] reflux reflux Medical disease) disease) Branch Allergies, Adverse Reactions, Alerts Allergy Allergy Status Severity Reaction(s) Onset Inactive Treating Comm ents Source Name Type Date Date Clinician BEE DRUG Active High Other-Cmnt Univer s STING / INGREDI 6-14 ity of VENOM 00:00: [place] 00 Medical Branch VENOM-WA DRUG Active High Other-Cmnt Univ ers SP INGREDI 6-14 ity of 00:00: [place] 00 Medical Branch Bee Propensi Active Other - See Pt states Univers Sting / ty to comments 6-14 extreme ity of Venom adverse 00:00: pain if [place] reaction 00 stung. Medical s Branch Venom-Wa Propensi Active Other - See Pt state s Univers sp ty to comments 6-14 extreme ity of adverse 00:00: pain if [place] reaction 00 stung. Medical s Branch Chocolat Propensi Active Unknown - REAL Uni vers e Flavor ty to See comments 3-08 CHOCOLATE ity of adverse 00:00: , [place] reaction 00 headache, Medic al s rash Branch CHOCOLAT DRUG Active Unknown-Cmnt Un anne[place]marie E FLAVOR INGREDI 3-08 ity of 00:00: [place] 00 Medical Branch Propoxyp Propensi Active Unknown - 2005-02 Uni vers hene ty to See comments 2-18 ity of N-Acetam adverse 00:00: [place] inophen reaction 00 Medical s Branch Propoxyp Propensi Active Unknown - 2005-02 Uni vers hene Hcl ty to See comments 2-18 it y of adverse 00:00: [place] reaction 00 Medical s Branch Pentazoc Propensi Active Unknown - 2005-02 Uni vers ine ty to See comments 2-18 ity of Lactate adverse 00:00: [place] reaction 00 Medical s Branch PROPOXYP DRUG Active Unknown-Cmnt 2005-02 Un anne[place]ie HENE 2-18 ity of N-ACETAM 00:00: [place] INOPHEN 00 Medical Branch PROPOXYP DRUG Active Unknown-Cmnt 2005-02 Un [place] HENE HCL INGREDI 2-18 ity of 00:00: [place] 00 Medical Branch PENTAZOC DRUG Active Unknown-Cmnt 2005-02 Un [place]ie INE INGREDI 2-18 ity of LACTATE 00:00: [place] 00 Medical Branch Tetracyc Propensi Active Rash Univer s line ty to 9-11 ity of adverse 00:00: [place] reaction 00 Medical s Branch TETRACYC DRUG Active Rash Univers LINE INGREDI 9-11 ity of 00:00: [place] 00 Medical Branch Social History Social Habit Start Date Stop Date Quantity Comments Source Exposure to 2021-07-29 2021-08-08 Not sure [facility] SARS-CoV-2 00:00:00 11:15:00 [facility] (event) Branch Alcohol intake 2021-08-08 2021-08-08 Current University of 00:00:00 00:00:00 non-drinker of [facility] alcohol (finding) Branch Tobacco Comment 2021-06-21 2021-06-21 NA Universit y of 00:00:00 00:00:00 [facility] Tobacco use and 2021-06-21 2021-06-21 Smokeless tobacco Un iversity of exposure 00:00:00 00:00:00 non-user [facility] Sex [birth year] [facility] y of 00:00:00 00:00:00 [facility] Smoking Status Start Date Stop Date Source Never smoked tobacco [facility] Medications Ordered Filled Start Stop Current Ordering Indication Dosage Frequency Signature Comments Components Source Medication Medication Date Date Medication? Clinician (SIG) Name Name lyndseyprimitivomireyaatif Yes [id number] 3{tbl} Take 3 Univers r-ritonavir 7-06 tablets by it y of (PAXLOVID, 00:00: mouth 2 [place] EUA,) 150 00 (two) Medical mg x 2- 100 times Branch mg tablet daily. sukhdevrobertlvi Yes [id number] 3{tbl} Take 3 Univers r-ritonavir 7-06 tablets by it y of (PAXLOVID, 00:00: mouth [place] EUA,) 150 00 (two) Medical mg x 2- 100 times Branch mg tablet daily. sukhdevrobertlvi Yes [id number] 3{tbl} Take 3 Univers r-ritonavir 7-06 tablets by it y of (PAXLOVID, 00:00: [place] EUA,) 150 00 (two) Medical mg x 2- 100 times Branch mg tablet daily. hydroCHLORO Yes [id number] 25mg Take 1 U nivers thiazide 25 6-28 tablet by ity of mg tablet 00:00: mouth [place] 00 daily. [facility] Branch DULoxetine Yes [id number] 30mg Take 1 Univers 30 mg 6-28 capsule by ity of capsule 00:00: mouth [place] 00 daily. Medical Branch hydroCHLORO 2021-0 Yes [id number] 25mg Take 1 U nivers thiazide 25 6-28 tablet by ity of mg tablet 00:00: mouth [place] 00 daily. Medical Branch DULoxetine 2021-0 Yes [id number] 30mg Take 1 Univers 30 mg 6-28 capsule by ity of capsule 00:00: mouth [place] 00 daily. Medical Branch hydroCHLORO 2021-0 Yes [id number] 25mg Take 1 U nivers thiazide 25 6-28 tablet by ity of mg tablet 00:00: mouth [place] 00 daily. Medical Branch DULoxetine 2021-0 Yes [id number] 30mg Take 1 Univers 30 mg 6-28 capsule by ity of capsule 00:00: mouth [place] 00 daily. Medical Branch hydroCHLORO 2021-0 Yes [id number] 25mg Take 1 U nivers thiazide 25 6-28 tablet by ity of mg tablet 00:00: mouth [place] 00 daily. Medical Branch DULoxetine 2021-0 Yes [id number] 30mg Take 1 Univers 30 mg 6-28 capsule by ity of capsule 00:00: mouth [place] 00 daily. Medical Branch hydroCHLORO 2021-0 Yes [id number] 25mg Take 1 U nivers thiazide 25 6-28 tablet by ity of mg tablet 00:00: mouth [place] 00 daily. Medical Branch DULoxetine 0 Yes [id number] 30mg Take 1 Univers 30 mg 6-28 capsule by ity of capsule 00:00: mouth [place] 00 daily. Medical Branch HYDROcodone 2021-0 Yes [id number] Take 1-2 Un anne-marie -acetaminop 6-23 tabs by itmateusz barber (NORCO) 00:00: mouth [place] 10-325 mg 00 every 4 Medical tablet hours as Branch needed for pain. Max: 5/ 24 hours. Indication s: chronic pain, chronic pain HYDROcodone 2021-0 Yes [id number] Take 1-2 Un anne-marie -acetaminop 6-23 tabs by ity o f hen (NORCO) 00:00: mouth [place] 10-325 mg 00 every 4 Medical tablet hours as Branch needed for pain. Max: 5/ 24 hours. Indication s: chronic pain, chronic pain HYDROcodone 2021-0 Yes [id number] Take 1-2 Un anne-marie -acetaminop 6-23 tabs by ity o f hen (NORCO) 00:00: mouth [place] 10-325 mg 00 every 4 Medical tablet hours as Branch needed for pain. Max: 5/ 24 hours. Indication s: chronic pain, chronic pain HYDROcodone 2021-0 Yes [id number] Take 1-2 Un anne-marie -acetaminop 6-23 tabs by ity o f hen (NORCO) 00:00: mouth [place] 10-325 mg 00 every 4 Medical tablet hours as Branch needed for pain. Max: 5/ 24 hours. Indication s: chronic pain, chronic pain HYDROcodone 2021-0 Yes [id number] Take 1-2 Un anne-marie -acetaminop 6-23 tabs by ity o f hen (NORCO) 00:00: mouth [place] 10-325 mg 00 every 4 Medical tablet hours as Branch needed for pain. Max: 5/ 24 hours. Indication s: chronic pain, chronic pain ergocalcife 0 Yes Take by Un anne-marie rol, 5-24 mouth. ity of vitamin D2, 11:37: [place] (VITAMIN D 52 Medical ORAL) Branch ergocalcife Yes Take by Un anne-marie rol, 5-24 mouth. ity of vitamin D2, 11:37: [place] (VITAMIN D 52 Medical ORAL) Branch ergocalcife Yes Take by Un anne-marie rol, 5-24 mouth. ity of vitamin D2, 11:37: [place] (VITAMIN D 52 Medical ORAL) Branch ergocalcife Yes Take by Un anne-marie rol, 5-24 mouth. ity of vitamin D2, 11:37: [place] (VITAMIN D 52 Medical ORAL) Branch ergocalcife Yes Take by Un anne-marie rol, 5-24 mouth. ity of vitamin D2, 11:37: [place] (VITAMIN D 52 Medical ORAL) Branch DULoxetine 2021-2021- No [id number] 30mg Take 1 Univers 30 mg 5-24 - capsule by ity of capsule 00:00: 00:00 mouth [place] 00 :00 daily. Medical Branch DULoxetine 2021-0 2021- No [id number] 30mg Take 1 Univers 30 mg 5-24 - capsule by ity of capsule 00:00: 00:00 mouth [place] 00 :00 daily. Medical Branch METOPROLOL 2022-0 Yes [id number] Take 1 Un anne-marie SUCCINATE 5-17 tablet by ity o f XL 25 mg 24 00:00: mouth once [place] hr tablet 00 daily Medical Branch METOPROLOL 2021-0 Yes [id number] Take 1 Un anne[place]mar[place] SUCCINATE 5-17 tablet by ity o f XL 25 mg 24 00:00: mouth once [place] hr tablet 00 daily Medical Branch METOPROLOL 2021-0 Yes [id number] Take 1 Un anne-marie SUCCINATE 5-17 tablet by ity o f XL 25 mg 24 00:00: mouth once [place] hr tablet 00 daily Medical Branch METOPROLOL 2021-0 Yes [id number] Take 1 Un anne-marie SUCCINATE 5-17 tablet by ity o f XL 25 mg 24 00:00: mouth once [place] hr tablet 00 daily Medical Branch METOPROLOL 0 Yes [id number] Take 1 Un anne-marie SUCCINATE 5-17 tablet by ity o f XL 25 mg 24 00:00: mouth once [place] hr tablet 00 daily Medical Branch leflunomide 2021-0 Yes [id number] 20mg Take 1 Univers 20 mg 2-28 tablet by ity of tablet 00:00: mouth [place] 00 daily. Medical Branch leflunomide Yes [id number] 20mg Take 1 Univers 20 mg 2-28 tablet by ity of tablet 00:00: mouth [place] 00 daily. Medical Branch leflunomide Yes [id number] 20mg Take 1 Univers 20 mg 2-28 tablet by ity of tablet 00:00: mouth [place] 00 daily. Medical Branch leflunomide 0 Yes [id number] 20mg Take 1 Univers 20 mg 2-28 tablet by ity of tablet 00:00: mouth [place] 00 daily. Medical Branch leflunomide 0 Yes [id number] 20mg Take 1 Univers 20 mg 2-28 tablet by ity of tablet 00:00: mouth [place] 00 daily. Medical Branch glipiZIDE 0 Yes [id number] 5mg Take 1 U nivers XL 5 mg 24 2-18 tablet by ity of hr tablet 00:00: mouth [place] 00 daily with Medical breakfast. Branch glipiZIDE Yes [id number] 5mg Take 1 U nivers XL 5 mg 24 2-18 tablet by ity of hr tablet 00:00: mouth [place] 00 daily with Medical breakfast. Branch glipiZIDE 2021-0 Yes [id number] 5mg Take 1 U nivers XL 5 mg 24 2-18 tablet by ity of hr tablet 00:00: mouth 00 daily with Medical breakfast. Branch glipiZIDE 2021-0 Yes [id number] 5mg Take 1 U nivers XL 5 mg 24 2-18 tablet by ity of hr tablet 00:00: mouth daily with Medical breakfast. Branch glipiZIDE 2021-0 Yes [id number] 5mg Take 1 U nivers XL 5 mg 24 2-18 tablet by ity of hr tablet 00:00: mouth 00 daily with Medical breakfast. Branch enalapril 2020-02 Yes [id number] 20mg Take 1 Uni vers 20 mg 1-23 tablet by ity of tablet 00:00: mouth (two) Medical times Branch daily. enalapril 2020-02 Yes [id number] 20mg Take 1 Uni vers 20 mg 1-23 tablet by ity of tablet 00:00: mouth (two) Medical times Branch daily. enalapril 2020-02 Yes [id number] 20mg Take 1 Uni vers 20 mg 1-23 tablet by ity of tablet 00:00: mouth (two) Medical times Branch daily. enalapril 2020-02 Yes [id number] 20mg Take 1 Uni vers 20 mg 1-23 tablet by ity of tablet 00:00: mouth (two) Medical times Branch daily. enalapril 2020-02 Yes [id number] 20mg Take 1 Uni vers 20 mg 1-23 tablet by ity of tablet 00:00: mouth (two) Medical times Branch daily. triamcinolo 0 Yes [id number] Apply to [facility] ne 8-31 area(s) 2 ity of acetonide 00:00: (two) [place] 0.1 % cream 00 times Medical daily. Branch triamcinolo 2020-0 Yes [id number] Apply to [facility] ne 8-31 area(s) 2 ity of acetonide 00:00: (two) [place] 0.1 % cream 00 times Medical daily. Branch triamcinolo 2020-0 Yes [id number] Apply to [facility] ne 8-31 area(s) 2 ity of acetonide 00:00: (two) [place] 0.1 % cream 00 times Medical daily. Branch triamcinolo 2020-0 Yes [id number] Apply to [facility] ne 8-31 area(s) 2 ity of acetonide 00:00: (two) [place] 0.1 % cream 00 times Medical daily. Branch triamcinolo 2020-0 Yes [id number] Apply to [facility] ne 8-31 area(s) 2 ity of acetonide 00:00: (two) [place] 0.1 % cream 00 times Medical daily. Branch PANTOPRAZOL 2020-0 Yes [id number] Take 1 Univers E 40 mg EC 8-11 tablet by ity of tablet 00:00: mouth [place] 00 twice Medical daily Branch PANTOPRAZOL 2020-0 Yes [id number] Take 1 Univers E 40 mg EC 8-11 tablet by ity of tablet 00:00: mouth [place] 00 twice Medical daily Branch PANTOPRAZOL 2020-0 Yes [id number] Take 1 Univers E 40 mg EC 8-11 tablet by ity of tablet 00:00: mouth [place] 00 twice Medical daily Branch PANTOPRAZOL 2020-0 Yes [id number] Take 1 Univers E 40 mg EC 8-11 tablet by ity of tablet 00:00: mouth [place] 00 twice Medical daily Branch PANTOPRAZOL 2020-0 Yes [id number] Take 1 Univers E 40 mg EC 8-11 tablet by ity of tablet 00:00: mouth [place] 00 twice Medical daily Branch Artificial 2020-0 Yes [id number] 2[drp] Place 2 Univers Tear,Dxtrn- 6-17 Drops in ity of HPM-Gly, 00:00: each eye 2 Madi as (GENTEAL 00 (two) Medical TEARS times Branch MODERATE) daily. 0.1-0.3-0.2 % Drop Artificial 2020-0 Yes [id number] 2[drp] Place 2 Univers Tear,Dxtrn- 6-17 Drops in ity of HPM-Gly, 00:00: each eye 2 Madi as (GENTEAL 00 (two) Medical TEARS times Branch MODERATE) daily. 0.1-0.3-0.2 % Drop Artificial 2020-0 Yes [id number] 2[drp] Place 2 Univers Tear,Dxtrn- 6-17 Drops in ity of HPM-Gly, 00:00: each eye 2 [place] as (GENTEAL 00 (two) Medical TEARS times Branch MODERATE) daily. 0.1-0.3-0.2 % Drop Artificial 2021-0 Yes [id number] 2[drp] Place 2 Univers Tear,Dxtrn- 6-17 Drops in ity of HPM-Gly, 00:00: each eye 2 [place] as (GENTEAL 00 (two) Medical TEARS times Branch MODERATE) daily. 0.1-0.3-0.2 % Drop Artificial 2021-0 Yes [id number] 2[drp] Place 2 Univers Tear,Dxtrn- 6-17 Drops in ity of HPM-Gly, 00:00: each eye 2 [place] as (GENTEAL 00 (two) Medical TEARS times Branch MODERATE) daily. 0.1-0.3-0.2 % Drop terbinafine 202-0 Yes [id number] Apply to Univers HCL 1 % 4-08 area(s) 2 ity of cream 00:00: (two) [place] 00 times Medical daily. Branch terbinafine 2021-0 Yes [id number] Apply to Univers HCL 1 % 4-08 area(s) 2 ity of cream 00:00: (two) [place] 00 times Medical daily. Branch terbinafine 2021-0 Yes [id number] Apply to Univers HCL 1 % 4-08 area(s) 2 ity of cream 00:00: (two) [place] 00 times Medical daily. Branch terbinafine 2021-0 Yes [id number] Apply to Univers HCL 1 % 4-08 area(s) 2 ity of cream 00:00: (two) [place] 00 times Medical daily. Branch terbinafine 2021-0 Yes [id number] Apply to Univers HCL 1 % 4-08 area(s) 2 ity of cream 00:00: (two) [place] 00 times Medical daily. Branch NITROGLYCER Yes [id number] DISSOLVE Univers IN 0.4 mg 8-27 ONE TABLET ity of sublingual 00:00: UNDER THE [place] tablet 00 TONGUE Medical EVERY 5 Branch MINUTES NEEDED FOR CHEST PAIN. DO NOT EXCEED A TOTAL OF 3 DOSES IN 15 MINUTES NITROGLYCER Yes [id number] DISSOLVE Univers IN 0.4 mg 8-27 ONE TABLET ity of sublingual 00:00: UNDER THE [place] tablet 00 TONGUE Medical EVERY 5 Branch MINUTES NEEDED FOR CHEST PAIN. DO NOT EXCEED A TOTAL OF 3 DOSES IN 15 MINUTES NITROGLYCER Yes [id number] DISSOLVE Univers IN 0.4 mg 8-27 ONE TABLET ity of sublingual 00:00: UNDER THE [place] tablet 00 TONGUE Medical EVERY 5 Branch MINUTES NEEDED FOR CHEST PAIN. DO NOT EXCEED A TOTAL OF 3 DOSES IN 15 MINUTES NITROGLYCER Yes [id number] DISSOLVE Univers IN 0.4 mg 8-27 ONE TABLET ity of sublingual 00:00: UNDER THE [place] tablet 00 TONGUE Medical EVERY 5 Branch MINUTES NEEDED FOR CHEST PAIN. DO NOT EXCEED A TOTAL OF 3 DOSES IN 15 MINUTES NITROGLYCER Yes [id number] DISSOLVE Univers IN 0.4 mg 8-27 ONE TABLET ity of sublingual 00:00: UNDER THE [place] tablet 00 TONGUE Medical EVERY 5 Branch MINUTES NEEDED FOR CHEST PAIN. DO NOT EXCEED A TOTAL OF 3 DOSES IN 15 MINUTES Immunizations Ordered Filled Immunization Date Status Comments [facility] e Immunization Name Name SARS-COV-2 COVID-19 2021-08-08 Completed Unive rsity of MODERNA 0.25ML 00:00:00 [place] Medi tatianna BOOSTER VACCINE Branch SARS-COV-2 COVID-19 2021-08-08 Completed Unive rsity of MODERNA 0.25ML 00:00:00 [place] Medi tatianna BOOSTER VACCINE Branch SARS-COV-2 COVID-19 2021-08-08 Completed Unive rsity of MODERNA 0.25ML 00:00:00 [place] Medi tatianna BOOSTER VACCINE Branch SARS-COV-2 COVID-19 2021-08-08 Completed Unive rsity of MODERNA 0.25ML 00:00:00 [place] Medi tatianna BOOSTER VACCINE Branch SARS-COV-2 COVID-19 2021-08-08 Completed Unive rsity of MODERNA 0.25ML 00:00:00 [place] Medi tatianna BOOSTER VACCINE Branch SARS-COV-2 COVID-19 2021-01-10 Completed Unive rsity of MODERNA VACCINE 00:00:00 [place] Med ical Branch SARS-COV-2 COVID-19 2021-01-10 Completed Unive rsity of MODERNA VACCINE 00:00:00 [place] Med ical Branch SARS-COV-2 COVID-19 2021-01-10 Completed Unive rsity of MODERNA VACCINE 00:00:00 [facility] SARS-COV-2 COVID-19 2021-01-10 Completed Unive rsity of MODERNA VACCINE 00:00:00 [facility] SARS-COV-2 COVID-19 2021-01-10 Completed Unive rsity of MODERNA VACCINE 00:00:00 [facility] SARS-COV-2 COVID-19 2020-05-22 Completed Unive rsity of MAGDA/J&J VACCINE 00:00:00 [facility] SARS-COV-2 COVID-19 2020-05-22 Completed Unive rsity of MAGDA/J&J VACCINE 00:00:00 [facility] SARS-COV-2 COVID-19 2020-05-22 Completed Unive rsity of MAGDA/J&J VACCINE 00:00:00 [facility] SARS-COV-2 COVID-19 2020-05-22 Completed Unive rsity of MAGDA/J&J VACCINE 00:00:00 [facility] SARS-COV-2 COVID-19 2020-05-22 Completed Unive rsity of MAGDA/J&J VACCINE 00:00:00 [facility] Influenza High Dose 2016-11-27 Completed Unive rsity of 00:00:00 [facility] Influenza High Dose 2016-11-27 Completed Unive rsity of 00:00:00 [facility] Influenza High Dose 2016-11-27 Completed Unive rsity of 00:00:00 [facility] Influenza High Dose 2016-11-27 Completed Unive rsity of 00:00:00 [facility] Influenza High Dose 2016-11-27 Completed Unive rsity of 00:00:00 [facility] PPD (TB) 2008-04-26 Completed University of 00:00:00 [facility] PPD (TB) 2008-04-26 Completed University of 00:00:00 [facility] PPD (TB) 2008-04-26 Completed University of 00:00:00 [facility] PPD (TB) 2008-04-26 Completed University of 00:00:00 [facility] PPD (TB) 2008-04-26 Completed University of 00:00:00 [facility] Td 2007-02-11 Completed University of 00:00:00 [facility] Td 2007-02-11 Completed University of 00:00:00 [facility] Td 2007-02-11 Completed University of 00:00:00 [facility] Td 2007-02-11 Completed University of 00:00:00 [facility] Td 2007-02-11 Completed University 00:00:00 [facility] Vital Signs Vital Name Observation Time Observation Value Comments Source Systolic blood 2021-08-08 180 mm[Hg] reported out University of pressure 16:36:00 [facility] Diastolic blood 2021-08-08 104 mm[Hg] reported out University o f pressure 16:36:00 [facility] Heart rate 2021-08-08 93 /min [facility] 16:36:00 [facility] Body temperature 2021-08-08 36.67 Delaney [facility] 16:35:00 [facility] Respiratory rate 2021-08-08 16 /min [facility] 16:35:00 [facility] Oxygen saturation 2021-08-08 98 /min [facility] [place] [facility] Arterial blood 16:35:00 [facility] by Pulse oximetry [place] Procedures Procedure Date / Time Performed Performing Clinician Sour e SARS-COV-2 COVID-19 2021-08-08 17:42:09 Rita Westfall [facility] it of [facility] [place] [facility] BOOSTER,0.25ML,IM (MODERNA) Encounters Start End Encounter Admission Attending Care Care Encounter Source Date/Time Date/Time Type Type Clinicians Facility Department ID 2021-08-29 2021-08-29 Telephone Rita Westfall [id number] Univers 00:00:00 00:00:00 [place] MULTISPEC [id number] ity of IALTY [id number] [facility] [place] [id number] [address] DIABETES CLINIC 2021-08-24 2021-08-24 Telephone Rita Westfall [id number] Univers 00:00:00 00:00:00 [place] MULTISPEC [id number] ity of IALTY [id number] [facility] [place] [id number] [address] DIABETES CLINIC 2021-08-16 2021-08-16 Telephone Rita Westfall [id number] Univers 00:00:00 00:00:00 [place] PRIMARY [id number] it y of CARE [id number] Nils beltran [place] [id number] [place] [address] Branch 2021-08-08 2021-08-08 Office Rita Westfall [facility] [id number] [facility] 11:30:00 12:00:00 Visit O[place] MULTISPEC [id number] ity of IALTY [id number] Nils beltran [place] [id number] [facility] [place] [facility] [address] DIABETES CLINIC 2021-08-08 2021-08-08 Outpatient R RITA WESTFALL [facility] [id number] [facility] 11:30:00 11:30:00 ity [facility] 2021-08-03 2021-08-03 Outpatient R [facility] [id number] Univers 09:00:00 09:00:00 [id number] [facility] Results This patient has no known results.
== END 2021-08-13 20:53 | disposition home or self-care (01) | DRG 178 ==
LOC: ER 01:27 → ERHOLD 04:21 → 4TH 04:45
PROVIDERS: ADMIT Hospitalist; ATTEND Hospitalist
DX: U07.1 COVID-19 (principal); G93.40 Encephalopathy, unspecified; I12.9 Hypertensive chronic kidney disease with stage 1 through stage 4 chronic kidney disease, or unspecified chronic kidney disease; E11.22 Type 2 diabetes mellitus with diabetic chronic kidney disease; N18.31 Chronic kidney disease, stage 3a; Z91.030 Bee allergy status
CPT/HCPCS: 36415; 51702; 70450; 70551; 71045; 74176; 76377; 80048; 80076; 81003; 81015; 82947; 83605; 83690; 83735; 83880; 84100; 84484; 85025; 85610; 87086; 87088; 93005; 94760; 96365; 96366; 97161; 99285; J0360; J1100; J1650; J1815; J2405; J3475; J7030; U0003